=== PATIENT | male | born 1970 | race Hispanic/Latino ===

== ENCOUNTER 2020-03-04 08:07 | Emergency (ER) | payer MEDICAID, OTHER ==
[2020-03-04] MEDS ORDERED: TETANUS/DIPHTHERIA TOXOID [ADULT] 0.5 ML VIAL IM ONE (08:27)
[2020-03-04] MEDS ORDERED: MORPHINE SULFATE 4 MG/1ML SYG ONE (10:13)
[2020-03-04] MEDS ORDERED: ONDANSETRON HCL 4 MG/2 ML VIAL ONE (10:13)
== END 2020-03-04 10:51 | disposition home or self-care (01) ==
LOC: EDH 08:07
DX: S13.9XXA Sprain of joints and ligaments of unspecified parts of neck, initial encounter (principal); S00.03XA Contusion of scalp, initial encounter; V49.59XA Passenger injured in collision with other motor vehicles in traffic accident, initial encounter; Y93.89 Activity, other specified; Y92.488 Other paved roadways as the place of occurrence of the external cause; Y99.8 Other external cause status
CPT/HCPCS: 70450; 71250; 72125; 74176; 90471; 90714; 96374; 96375; 99285; J2270; J2405